=== PATIENT | female | born 1950 | race African-American/Black ===

== ENCOUNTER 2023-08-12 16:02 | Inpatient (IN) | payer MEDICARE, MEDICAID ==
[~2023-08-12] VITALS: Ht 152.4 cm; Wt 36.3 kg
[2023-08-12 17:01] LABS: BASOPHILS % 0.5 % (0.0-2.0); EOSINOPHILS % 0.2 % (0.0-5.0); HEMATOCRIT. 38.2 % (36.0-48.0); HEMOGLOBIN. 13.3 g/dL (12.0-16.0); LYMPHOCYTES % 39.3 % (20.0-50.0); MEAN CORPUSCULAR HEMOGLOBIN 33.3 pg (28.0-32.0); MEAN CORPUSCULAR HGB CONC 34.7 g/dL (31.0-37.0); MEAN CORPUSCULAR VOLUME 95.9 fL (81.0-99.0); MEAN PLATELET VOLUME 8.4 fl (7.4-10.4); MONOCYTES % 6.3 % (2.0-8.0); NEUTROPHILS % 53.7 % (40.0-76.0); PLATELET 374 x1000/uL (130-400); RED BLOOD CELL COUNT 3.99 mill/uL (4.2-5.4); RED CELL DISTRIBUTION WIDTH 12.9 % (11.6-14.6); WHITE BLOOD COUNT 7.1 x1000/uL (4.5-11.0)
[2023-08-12] MEDS: SODIUM CHLORIDE 0.9% 1,000 ML IV ONE (17:03)
[2023-08-12] MEDS: ONDANSETRON HCL 4MG/2ML INJ IV STA (17:05)
[2023-08-12 17:08] LABS: CARBON DIOXIDE 23 mEq/L (21-32); CHLORIDE 87 mEq/L (98-107); SODIUM 125 mEq/L (136-145)
[2023-08-12 17:09] LABS: CALCIUM 9.5 mg/dL (8.7-10.4)
[2023-08-12 17:13] LABS: CREATININE 1.3 mg/dL (0.6-1.0); GLUCOSE 271 mg/dL (70-105)
[2023-08-12 17:14] LABS: UREA NITROGEN BLOOD 29 mg/dL (9-23)
[2023-08-12 17:15] LABS: ALANINE AMINOTRANSFERASE 20 IU/L (10-49); ALBUMIN 4.2 g/dL (3.2-4.8); ASPARTATE AMINOTRANSFERASE 45 IU/L (<34)
[2023-08-12 17:16] LABS: BILIRUBIN TOTAL 0.8 mg/dL (0.1-1.0); PROTEIN TOTAL 7.3 g/dL (6.0-8.3)
[2023-08-12 17:26] LABS: TROPONIN I HIGH SENSITIVITY 359 ng/L (3.0-34)
[2023-08-12 17:34] LABS: CLARITY URINE CLEAR (CLEAR); COLOR URINE YELLOW (YELLOW); GLUCOSE URINE 3+ (NEGATIVE); KETONES URINE 2+ (NEGATIVE); LEUKOCYTE ESTERASE URINE TRACE (NEGATIVE); NITRITE URINE NEGATIVE (NEGATIVE); OCCULT BLOOD URINE 1+ (NEGATIVE); PH URINE 5.5 (4.5-8.0); PROTEIN URINE 3+ (NEGATIVE); SPECIFIC GRAVITY URINE 1.017 (1.005-1.030)
[2023-08-12 17:49] LABS: SQUAMOUS EPITHELIAL CELL URINE FEW /lpf (RARE/1+)
[2023-08-12 17:50] LABS: BACTERIA URINE 2+
[2023-08-12] MEDS: ASPIRIN 81MG TABLET PO ONE (18:49)
[2023-08-12] MEDS: AMLODIPINE 5MG TABLET PO ONE (18:49)
[2023-08-12] MEDS: CEFTRIAXONE 1GM/50ML 50 ML IV ONE (18:49)
[2023-08-13] MEDS ORDERED: IPRATROPIUM/ALBUTEROL 0.5-3(2.5)MG/3ML NEB HHN PRN (00:15)
[2023-08-13] MEDS ORDERED: ACETAMINOPHEN 325MG TABLET PO PRN (00:15)
[2023-08-13] MEDS ORDERED: ONDANSETRON HCL 4MG/2ML INJ IV PRN (00:15)
[2023-08-13 01:30] VITALS: BP 142/69; PULSE 88; RESP 18; TEMP 97.2
[2023-08-13] MEDS: SODIUM CHLORIDE 0.9% 1,000 ML IV SCH (01:45)
[2023-08-13] MEDS: FAMOTIDINE 20MG/2ML VIAL IV SCH (01:45)
[2023-08-13 04:00] VITALS: BP 120/62; PULSE 81; RESP 18; TEMP 97.2
[2023-08-13] MEDS: CEFTRIAXONE 1GM/50ML 50 ML IV SCH (04:35)
[2023-08-13] MEDS ORDERED: DEXTROSE 50% WATER 50ML SYRINGE IV PRN ×2 (05:30→17:45)
[2023-08-13] MEDS: INSULIN LISPRO 100 UNITS/ML SUBCUT SCH ×2 (06:50→17:40)
[2023-08-13] MEDS: BLOOD SUGAR DIAGNOSTIC STRIP TEST SCH (06:50)
[2023-08-13 08:00] VITALS: BP 115/56; PULSE 87; RESP 16; TEMP 97.7
[2023-08-13] MEDS: ENOXAPARIN 30MG/0.3ML SYR SUBCUT SCH (08:52)
[2023-08-13] MEDS: LOSARTAN 25 MG TABLET PO SCH ×2 (08:52)
[2023-08-13] MEDS: ASPIRIN 81MG TABLET PO SCH (08:52)
[2023-08-13 09:05] LABS: CHLORIDE 99 mEq/L (98-107)
[2023-08-13 09:06] LABS: CALCIUM 8.4 mg/dL (8.7-10.4); CARBON DIOXIDE 28 mEq/L (21-32)
[2023-08-13 09:11] LABS: GLUCOSE 53 mg/dL (70-105); SODIUM 134 mEq/L (136-145); UREA NITROGEN BLOOD 17 mg/dL (9-23)
[2023-08-13 09:13] LABS: CREATINE KINASE MB FRACTION 11.6 ng/mL (0.5-3.6)
[2023-08-13 10:11] LABS: D-DIMER 0.42 mg/L FEU (<0.50); PROTHROMBIN TIME 10.8 sec (9.6-11.0)
[2023-08-13 10:37] LABS: BG BASE EXCESS -0.8 mmol/L (-2.0-2.0); BG CARBOXYHEMOGLOBIN 0.2 % (0.5-1.5); BG DEOXYHEMOGLOBIN 2.2 % (0.0-5.0); BG FRACTION INSPIRED OXYGEN 21; BG HCO3 ACT 22.2 mmol/L (22.0-26.0); BG METHEMOGLOBIN 0.3 % (0.0-1.5); BG OXYGEN SATURATION 97.8 % (92.0-98.5); BG OXYHEMOGLOBIN 97.3 % (94.0-97.0); BG PCO2 31.5 mmHg (35.0-45.0); BG PH 7.466 (7.350-7.450); BG PO2 114.7 mmHg (75.0-100.0); BG SAMPLE SITE RIGHT RADIAL; BG TOTAL HEMOGLOBIN 11.4 g/dL (12.0-18.0); BG VENT MODE ROOM AIR
[2023-08-13 10:39] LABS: HEMOGLOBIN 11.5 g/dL (12.0-16.0); MEAN CORPUSCULAR HEMOGLOBIN 32.6 pg (28.0-32.0); MEAN CORPUSCULAR HGB CONC 34.8 g/dL (31.0-37.0); MEAN CORPUSCULAR VOLUME 93.7 fL (81.0-99.0); PLATELET 288 x1000/uL (130-400); RED BLOOD CELL COUNT 3.53 mill/uL (4.2-5.4); WHITE BLOOD COUNT 6.7 x1000/uL (4.5-11.0)
[2023-08-13 12:00] VITALS: BP 115/62; PULSE 87; RESP 18; TEMP 97.9
[2023-08-13 12:23] LABS: CHLORIDE 96 mEq/L (98-107); POTASSIUM 3.2 mEq/L (3.5-5.1); SODIUM 132 mEq/L (136-145)
[2023-08-13 12:24] LABS: CALCIUM 8.5 mg/dL (8.7-10.4); CARBON DIOXIDE 26 mEq/L (21-32)
[2023-08-13 12:29] LABS: GLUCOSE 92 mg/dL (70-105); UREA NITROGEN BLOOD 16 mg/dL (9-23)
[2023-08-13 12:33] LABS: VITAMIN B12 SERUM 746 pg/mL (211-911)
[2023-08-13 16:00] VITALS: BP 120/60; PULSE 91; RESP 20; TEMP 97.9
[2023-08-13 18:18] LABS: AMMONIA < 17 uMol/L (<32); CREATINE KINASE MB FRACTION 12.2 ng/mL (0.5-3.6)
[2023-08-13 18:19] LABS: CREATINE KINASE 113 IU/L (34-145); PHOSPHORUS 2.5 mg/dL (2.5-4.9)
[2023-08-13 18:32] LABS: TROPONIN I HIGH SENSITIVITY 231 ng/L (3.0-34)
[2023-08-13] MEDS: POTASSIUM CHLORIDE 20MEQ/PACKET PO NR (19:24)
[2023-08-13 20:00] VITALS: BP 133/76; PULSE 103; RESP 17; TEMP 97.7
[2023-08-13] MEDS: ATORVASTATIN CALCIUM 40MG TABLET PO SCH (20:33)
[2023-08-13 22:25] LABS: CREATINE KINASE MB FRACTION 11.8 ng/mL (0.5-3.6)
[2023-08-13 22:41] LABS: CREATINE KINASE MB FRACTION 11.6 ng/mL (0.5-3.6)
[2023-08-14] VITALS: BP 94/42; PULSE 91; RESP 17; TEMP 97.5
[2023-08-14 02:06] LABS: CREATINE KINASE MB FRACTION 8.4 ng/mL (0.5-3.6)
[2023-08-14 04:00] VITALS: BP 129/58; PULSE 86; RESP 18; TEMP 97.7
[2023-08-14] MEDS: CEFTRIAXONE 2GM/50ML 50 ML IV SCH (05:24)
[2023-08-14 08:00] VITALS: BP 101/54; PULSE 87; RESP 18; TEMP 98
[2023-08-14 08:09] LABS: PARTIAL THROMBOPLASTIN TIME 25.6 sec (23.4-31.0); PROTHROMBIN TIME 10.9 sec (9.6-11.0)
[2023-08-14 08:52] LABS: BASOPHILS % 0.8 % (0.0-2.0); EOSINOPHILS % 0.8 % (0.0-5.0); HEMATOCRIT. 27.6 % (36.0-48.0); HEMOGLOBIN. 9.9 g/dL (12.0-16.0); LYMPHOCYTES % 42.6 % (20.0-50.0); MEAN CORPUSCULAR HEMOGLOBIN 33.8 pg (28.0-32.0); MEAN CORPUSCULAR HGB CONC 35.8 g/dL (31.0-37.0); MEAN CORPUSCULAR VOLUME 94.5 fL (81.0-99.0); MEAN PLATELET VOLUME 8.3 fl (7.4-10.4); MONOCYTES % 5.2 % (2.0-8.0); NEUTROPHILS % 50.6 % (40.0-76.0); PLATELET 248 x1000/uL (130-400); RED BLOOD CELL COUNT 2.92 mill/uL (4.2-5.4); WHITE BLOOD COUNT 6.3 x1000/uL (4.5-11.0)
[2023-08-14 12:00] VITALS: BP 126/66; PULSE 84; RESP 20; TEMP 97.9
[2023-08-14 12:36] LABS: T4 FREE 1.53 ng/dL (0.89-1.76); THYROID STIMULATING HORMONE 0.38 uIU/mL (0.55-4.78)
[2023-08-14 16:00] VITALS: BP 137/66; PULSE 74; RESP 20; TEMP 98.2
[2023-08-14 20:00] VITALS: BP 128/70; PULSE 72; RESP 18; TEMP 98
[2023-08-15] VITALS (7 sets, daily range): BP systolic 109–144; BP diastolic 59–76; PULSE 71–83; RESP 14–20; TEMP 97.7–98.2
[2023-08-16 04:00] VITALS: BP 129/62; PULSE 83; RESP 18; TEMP 98
[2023-08-16 08:00] VITALS: BP 146/71; PULSE 95; RESP 18; TEMP 99
[2023-08-16] MEDS ORDERED: VERAPAMIL HCL 2.5 MG/1 ML 2ML VIAL IV ONE (11:38)
[2023-08-16] MEDS ORDERED: LIDOCAINE HCL 1% 10 MG/ML 10ML VIAL ONE (11:38)
[2023-08-16] MEDS ORDERED: DIPHENHYDRAMINE 50MG/ML VIAL ONE (11:39)
[2023-08-16] MEDS ORDERED: IODIXANOL 320MG/ML 100 ML BOTTLE IV ONE (11:39)
[2023-08-16] MEDS ORDERED: HEPARIN 1,000 UNITS PREMIX 1,500 ML IV ONE (11:39)
[2023-08-16] MEDS ORDERED: HEPARIN 1000 UNITS/ML 10ML ONE (11:39)
[2023-08-16 12:00] VITALS: BP 120/65; PULSE 93; RESP 18; TEMP 96.6
[2023-08-16] MEDS ORDERED: MIDAZOLAM HCL 2 MG/2 ML VIAL ONE (12:10)
[2023-08-16] MEDS ORDERED: FENTANYL CITRATE/PF 50MCG/ML 2ML VIAL ONE (12:10)
[2023-08-16] MEDS ORDERED: ACETAMINOPHEN 325MG TABLET PO PRN (13:45)
[2023-08-16] MEDS ORDERED: ATROPINE SULFATE 1MG/10ML SYR IV PRN (13:45)
[2023-08-16] MEDS: SODIUM CHLORIDE 0.45% 500 ML IV SCH (14:18)
[2023-08-16] MEDS: HYDRALAZINE 20MG/ML VIAL IV NR (14:48)
[2023-08-16 16:40] VITALS: BP 118/62; PULSE 87; RESP 18; TEMP 97.3
[2023-08-16] MEDS: ISOSORBIDE MONONITRATE 30MG TABLET SR 24HR PO SCH (17:07)
[2023-08-16 20:00] VITALS: BP 115/68; PULSE 88; RESP 18; TEMP 97
[2023-08-16] MEDS: METOPROLOL TARTRATE 25MG TABLET PO SCH (21:07)
[2023-08-16] MEDS: INSULIN GLARGINE 100 UNITS/ML SUBCUT SCH (21:42)
[2023-08-17] VITALS: BP 115/55; PULSE 98; RESP 18; TEMP 97.8
[2023-08-17 04:00] VITALS: BP 110/61; PULSE 100; RESP 18; TEMP 97.8
[2023-08-17 07:31] LABS: HEMATOCRIT. 24.4 % (36.0-48.0); HEMOGLOBIN. 8.7 g/dL (12.0-16.0); MEAN CORPUSCULAR HEMOGLOBIN 33.6 pg (28.0-32.0); MEAN CORPUSCULAR HGB CONC 35.5 g/dL (31.0-37.0); MEAN CORPUSCULAR VOLUME 94.6 fL (81.0-99.0); MEAN PLATELET VOLUME 9.1 fl (7.4-10.4); PLATELET 258 x1000/uL (130-400); RED BLOOD CELL COUNT 2.58 mill/uL (4.2-5.4); RED CELL DISTRIBUTION WIDTH 13.3 % (11.6-14.6)
[2023-08-17 07:53] LABS: CHLORIDE 103 mEq/L (98-107)
[2023-08-17 07:54] LABS: CALCIUM 8.2 mg/dL (8.7-10.4); CARBON DIOXIDE 24 mEq/L (21-32); SODIUM 133 mEq/L (136-145)
[2023-08-17 07:58] LABS: DIFFERENTIAL COMMENT 1
[2023-08-17 07:59] LABS: CREATININE 1.1 mg/dL (0.6-1.0); GLUCOSE 140 mg/dL (70-105)
[2023-08-17 08:00] VITALS: BP 110/56; PULSE 107; RESP 18; TEMP 99.3
[2023-08-17 08:00] LABS: UREA NITROGEN BLOOD 17 mg/dL (9-23)
[2023-08-17 08:02] LABS: PHOSPHORUS 2.7 mg/dL (2.5-4.9)
[2023-08-17] MEDS: AMLODIPINE 2.5MG TABLET PO SCH (08:55)
[2023-08-17] MEDS: MAGNESIUM 4 G PREMIX 100 ML IV NR (11:06)
[2023-08-17 11:34] LABS: PLATELET ESTIMATE NORMAL
[2023-08-17 12:00] VITALS: BP 100/50; PULSE 76; RESP 18; RESP 20; TEMP 99
[2023-08-17 16:00] VITALS: BP 101/50; PULSE 66; RESP 18; TEMP 96.4
[2023-08-17 20:00] VITALS: BP 103/66; PULSE 92; RESP 18; TEMP 97
[2023-08-17] MEDS: METOPROLOL TARTRATE 50MG TABLET PO SCH (21:00)
[2023-08-17] MEDS: INSULIN GLARGINE 100 UNITS/ML SUBCUT SCH (21:36)
[2023-08-18] VITALS: BP 100/66; PULSE 69; RESP 20; TEMP 98.6
[2023-08-18 04:00] VITALS: BP 99/59; PULSE 70; RESP 20; TEMP 98.6
[2023-08-18 08:00] VITALS: BP 102/50; PULSE 78; RESP 18; TEMP 96.9
[2023-08-18] MEDS: METOPROLOL TARTRATE 25MG TABLET PO SCH (08:52)
[2023-08-18 12:00] VITALS: BP 100/57; PULSE 85; RESP 18; TEMP 97
[2023-08-18] MEDS ORDERED: METF-874 MT (12:31)
[2023-08-18] MEDS ORDERED: ASPI-1160 PO (12:31)
[2023-08-18] MEDS ORDERED: ISOS30TA91 PO (12:31)
[2023-08-18] MEDS ORDERED: METO25TA6 PO (12:31)
[2023-08-18] MEDS ORDERED: LIP40 PO (12:31)
[2023-08-18 13:26] VITALS: BP 100/52; PULSE 85; TEMP 97; O2SAT 97
[2023-08-18] MEDS ORDERED: ATORVASTATIN CALCIUM 40MG TABLET PO SCH (21:00)
== END 2023-08-18 16:08 | DRG 871 ==
LOC: ER 16:02 → 5WST 17:57 → EDBEDREQ 17:59 → EDBEDREQTM 17:59 → 8WST 08-13 00:54
PROVIDERS: ADMIT Internal Medicine; ATTEND Internal Medicine
PROC: 4A023N7 Measurement of Cardiac Sampling and Pressure, Left Heart, Percutaneous Approach (ICD-10-PCS; principal; 2023-08-16)
PROC: B211YZZ Fluoroscopy of Multiple Coronary Arteries using Other Contrast (ICD-10-PCS; 2023-08-16)
DX: A41.9 Sepsis, unspecified organism (principal); I21.A1 Myocardial infarction type 2; E87.1 Hypo-osmolality and hyponatremia; N17.9 Acute kidney failure, unspecified; N39.0 Urinary tract infection, site not specified; Z68.1 Body mass index [BMI] 19.9 or less, adult; I10 Essential (primary) hypertension; J44.9 Chronic obstructive pulmonary disease, unspecified; S30.0XXA Contusion of lower back and pelvis, initial encounter; Z20.822 Contact with and (suspected) exposure to COVID-19; R62.7 Adult failure to thrive; E11.9 Type 2 diabetes mellitus without complications; E11.65 Type 2 diabetes mellitus with hyperglycemia; R01.1 Cardiac murmur, unspecified; I25.10 Atherosclerotic heart disease of native coronary artery without angina pectoris; Z79.84 Long term (current) use of oral hypoglycemic drugs; Z79.899 Other long term (current) drug therapy; X58.XXXA Exposure to other specified factors, initial encounter; Y93.89 Activity, other specified; Y92.89 Other specified places as the place of occurrence of the external cause; Y99.8 Other external cause status
CPT/HCPCS: 36415; 36600; 71045; 80048; 80053; 80061; 81003; 82140; 82375; 82550; 82553; 82607; 82746; 82805; 82962; 83036; 83605; 83735; 83880; 83930; 84100; 84439; 84443; 84484; 85025; 85027; 85379; 87426; 93005; 93306; 93458; 93880; 93970; 99285; C1769; C1887; C1893; J0360; J0696; J1200; J1644; J1650; J1815; J2250; J2405; J3010; J3475; J3490; J7030; Q9967

== ENCOUNTER 2023-11-26 18:33 | Inpatient (IN) | payer MEDICARE ==
[~2023-11-26] VITALS: Ht 152.4 cm; Wt 36.3 kg
[~2023-11-26 18:33] MED LIST: ASPI-1160 PO; INSULIN GLARGINE 100 UNITS/ML SUBCUT SCH; ISOS30TA91 PO; LIP40 PO; METF-874 MT; METO25TA6 PO
[2023-11-26] MEDS ORDERED: CLONIDINE 0.1MG TABLET PO PRN (19:45)
[2023-11-26] MEDS ORDERED: ONDANSETRON HCL 4MG/2ML INJ IV PRN (19:45)
[2023-11-26] MEDS ORDERED: DEXTROSE 50% WATER 50ML SYRINGE IV PRN (19:45)
[2023-11-26] MEDS ORDERED: GUAIFENESIN 200MG/10ML SUGAR FREE UDC PO PRN (19:45)
[2023-11-26] MEDS ORDERED: KETOROLAC 15MG/ML VIAL IV PRN (19:45)
[2023-11-26] MEDS ORDERED: IPRATROPIUM/ALBUTEROL 0.5-3(2.5)MG/3ML NEB HHN PRN (19:45)
[2023-11-26] MEDS ORDERED: MAGNESIUM/ALUMINUM HYDROXIDE/SIMETHICONE 30ML UDC PO PRN (19:45)
[2023-11-26 20:00] VITALS: BP 93/44; PULSE 69; RESP 18; TEMP 36.78072; TEMP 36.8072; O2SAT 96
[2023-11-26] MEDS: METOPROLOL TARTRATE 25MG TABLET PO SCH (21:00)
[2023-11-26] MEDS: BLOOD SUGAR DIAGNOSTIC STRIP TEST SCH (21:20)
[2023-11-26] MEDS: ATORVASTATIN CALCIUM 40MG TABLET PO SCH (21:21)
[2023-11-26] MEDS: INSULIN LISPRO 100 UNITS/ML SUBCUT SCH (21:42)
[2023-11-27 06:19] LABS: BASOPHILS % 0.6 % (0.0-2.0); EOSINOPHILS % 1.6 % (0.0-5.0); LYMPHOCYTES % 26.4 % (20.0-50.0); MEAN CORPUSCULAR HEMOGLOBIN 31.8 pg (28.0-32.0); MEAN CORPUSCULAR HGB CONC 34.6 g/dL (31.0-37.0); MEAN CORPUSCULAR VOLUME 91.9 fL (81.0-99.0); MEAN PLATELET VOLUME 8.4 fl (7.4-10.4); MONOCYTES % 7.7 % (2.0-8.0); NEUTROPHILS % 63.7 % (40.0-76.0); PLATELET 296 x1000/uL (130-400); RED BLOOD CELL COUNT 2.83 mill/uL (4.2-5.4); RED CELL DISTRIBUTION WIDTH 16.5 % (11.6-14.6); WHITE BLOOD COUNT 7.5 x1000/uL (4.5-11.0)
[2023-11-27 06:24] LABS: CALCIUM 7.9 mg/dL (8.7-10.4); CHLORIDE 103 mEq/L (98-107); POTASSIUM 4.9 mEq/L (3.5-5.1); SODIUM 131 mEq/L (136-145)
[2023-11-27 06:25] LABS: CARBON DIOXIDE 24 mEq/L (21-32)
[2023-11-27 06:30] LABS: CREATININE 0.8 mg/dL (0.6-1.0); GLUCOSE 188 mg/dL (70-105); UREA NITROGEN BLOOD 18 mg/dL (9-23)
[2023-11-27 06:33] LABS: PREALBUMIN 8.8 mg/dl (10.0-40.0)
[2023-11-27] MEDS: INSULIN LISPRO 100 UNITS/ML SUBCUT SCH (06:56)
[2023-11-27 08:00] VITALS: BP 113/76; PULSE 90; RESP 18; TEMP 36.44736; O2SAT 100
[2023-11-27] MEDS: ASPIRIN 81MG TABLET PO SCH (10:10)
[2023-11-27] MEDS: FAMOTIDINE 20MG/2ML VIAL IV SCH (10:11)
[2023-11-27] MEDS: ISOSORBIDE MONONITRATE 30MG TABLET SR 24HR PO SCH (10:11)
[2023-11-27] MEDS: INSULIN GLARGINE 100 UNITS/ML SUBCUT SCH (10:21)
[2023-11-27] MEDS: ENOXAPARIN 30MG/0.3ML SYR SUBCUT SCH (16:25)
[2023-11-27 20:00] VITALS: BP 102/50; PULSE 79; RESP 18; TEMP 37.00296; O2SAT 97
[2023-11-28 08:00] VITALS: BP 159/73; PULSE 83; RESP 18; TEMP 36.72516; O2SAT 98
[2023-11-28 08:15] LABS: BASOPHILS % 0.5 % (0.0-2.0); HEMATOCRIT. 27.1 % (36.0-48.0); HEMOGLOBIN. 9.2 g/dL (12.0-16.0); LYMPHOCYTES % 20.9 % (20.0-50.0); MEAN CORPUSCULAR HEMOGLOBIN 31.4 pg (28.0-32.0); MEAN CORPUSCULAR HGB CONC 34.1 g/dL (31.0-37.0); MEAN CORPUSCULAR VOLUME 92.2 fL (81.0-99.0); MEAN PLATELET VOLUME 7.7 fl (7.4-10.4); MONOCYTES % 6.1 % (2.0-8.0); NEUTROPHILS % 71.5 % (40.0-76.0); PLATELET 331 x1000/uL (130-400); RED BLOOD CELL COUNT 2.94 mill/uL (4.2-5.4); RED CELL DISTRIBUTION WIDTH 16.4 % (11.6-14.6); WHITE BLOOD COUNT 6.7 x1000/uL (4.5-11.0)
[2023-11-28 08:30] LABS: CLARITY URINE CLEAR (CLEAR); COLOR URINE YELLOW (YELLOW); GLUCOSE URINE 2+ (NEGATIVE); KETONES URINE NEGATIVE (NEGATIVE); LEUKOCYTE ESTERASE URINE NEGATIVE (NEGATIVE); NITRITE URINE NEGATIVE (NEGATIVE); OCCULT BLOOD URINE 1+ (NEGATIVE); PH URINE 6.5 (4.5-8.0); PROTEIN URINE 1+ (NEGATIVE); SPECIFIC GRAVITY URINE 1.008 (1.005-1.030)
[2023-11-28 08:36] LABS: AMMONIA < 17 uMol/L (<32)
[2023-11-28 08:39] LABS: THYROID STIMULATING HORMONE 0.67 uIU/mL (0.55-4.78)
[2023-11-28 08:40] LABS: FERRITIN 188 ng/mL (10-291); FOLIC ACID (FOLATE) SERUM 6.93 ng/mL (>5.38); VITAMIN B12 SERUM 579 pg/mL (211-911)
[2023-11-28 08:45] LABS: SQUAMOUS EPITHELIAL CELL URINE NONE SEEN /lpf (RARE/1+); WBC URINE 0-2 /hpf (0-2)
[2023-11-28 08:46] LABS: BACTERIA URINE NONE SEEN; RBC URINE 0-2 /hpf (0-2)
[2023-11-28 08:47] LABS: CHLORIDE 101 mEq/L (98-107); POTASSIUM 4.4 mEq/L (3.5-5.1); SODIUM 129 mEq/L (136-145)
[2023-11-28 08:48] LABS: CALCIUM 8.1 mg/dL (8.7-10.4); CARBON DIOXIDE 22 mEq/L (21-32)
[2023-11-28 08:53] LABS: CREATININE 0.8 mg/dL (0.6-1.0); GLUCOSE 193 mg/dL (70-105); IRON 64 ug/dL (50-170); UREA NITROGEN BLOOD 20 mg/dL (9-23)
[2023-11-28 08:55] LABS: ALANINE AMINOTRANSFERASE < 7 IU/L (10-49); ASPARTATE AMINOTRANSFERASE 22 IU/L (<34); BILIRUBIN TOTAL 0.6 mg/dL (0.1-1.0)
[2023-11-28 08:56] LABS: PROTEIN TOTAL 5.4 g/dL (6.0-8.3); TOTAL IRON BINDING CAPACITY 480 ug/dl (250-425)
[2023-11-28 20:00] VITALS: BP 103/55; PULSE 76; RESP 20; TEMP 36.89184; O2SAT 99
[2023-11-28] MEDS ORDERED: NA PHOS,M-B/NA PHOS,DI-BA ENEMA 118ML PR PRN (20:15)
[2023-11-28] MEDS: LACTULOSE 20G/30ML UDC PO SCH (21:55)
[2023-11-29 08:00] VITALS: BP 131/62; PULSE 88; RESP 18; TEMP 36.50292; O2SAT 95
[2023-11-29] MEDS: ACETAMINOPHEN 650MG/20.3ML UDC PO PRN (09:00)
[2023-11-29 20:00] VITALS: BP 119/59; PULSE 78; RESP 17; TEMP 36.22512; O2SAT 99
[2023-11-30 08:00] VITALS: BP 147/67; PULSE 73; RESP 17; TEMP 36.28068; O2SAT 97
[2023-11-30] MEDS: ACETAMINOPHEN 325MG TABLET PO PRN (09:20)
[2023-11-30] MEDS: LACTULOSE 20G/30ML UDC PO SCH (15:42)
[2023-11-30] MEDS: ERGOCALCIFEROL 50000UNITS CAPSULE PO SCH (15:43)
[2023-11-30] MEDS: NA PHOS,M-B/NA PHOS,DI-BA ENEMA 118ML PR NR (15:43)
[2023-12-01 06:19] LABS: BASOPHILS % 0.9 % (0.0-2.0); EOSINOPHILS % 1.7 % (0.0-5.0); HEMATOCRIT. 25.7 % (36.0-48.0); HEMOGLOBIN. 8.9 g/dL (12.0-16.0); LYMPHOCYTES % 20.8 % (20.0-50.0); MEAN CORPUSCULAR HEMOGLOBIN 32.3 pg (28.0-32.0); MEAN CORPUSCULAR HGB CONC 34.6 g/dL (31.0-37.0); MEAN CORPUSCULAR VOLUME 93.2 fL (81.0-99.0); MEAN PLATELET VOLUME 7.2 fl (7.4-10.4); NEUTROPHILS % 68.6 % (40.0-76.0); PLATELET 421 x1000/uL (130-400); RED BLOOD CELL COUNT 2.76 mill/uL (4.2-5.4); RED CELL DISTRIBUTION WIDTH 16.9 % (11.6-14.6); WHITE BLOOD COUNT 7.9 x1000/uL (4.5-11.0)
[2023-12-01 06:21] LABS: CARBON DIOXIDE 26 mEq/L (21-32); CHLORIDE 101 mEq/L (98-107); POTASSIUM 4.8 mEq/L (3.5-5.1); SODIUM 132 mEq/L (136-145)
[2023-12-01 06:23] LABS: CALCIUM 8.4 mg/dL (8.7-10.4)
[2023-12-01 06:27] LABS: CREATININE 0.8 mg/dL (0.6-1.0); GLUCOSE 147 mg/dL (70-105)
[2023-12-01 06:28] LABS: UREA NITROGEN BLOOD 31 mg/dL (9-23)
[2023-12-01 08:00] VITALS: BP 154/69; PULSE 72; RESP 18; TEMP 36.22512; O2SAT 95
[2023-12-01 20:00] VITALS: BP 121/54; PULSE 86; RESP 16; TEMP 36.55848; O2SAT 96
[2023-12-02 08:00] VITALS: BP 148/72; PULSE 89; RESP 17; TEMP 36.114; O2SAT 97
[2023-12-02] MEDS ORDERED: NALOXONE HCL 0.4MG/ML VIAL IV PRN (10:15)
[2023-12-02 20:00] VITALS: BP 122/51; PULSE 82; RESP 17; TEMP 36.33624; O2SAT 99
[2023-12-03 07:00] LABS: CARBON DIOXIDE 25 mEq/L (21-32); CHLORIDE 100 mEq/L (98-107); POTASSIUM 4.7 mEq/L (3.5-5.1); SODIUM 131 mEq/L (136-145)
[2023-12-03 07:02] LABS: CALCIUM 7.7 mg/dL (8.7-10.4)
[2023-12-03 07:05] LABS: CREATININE 0.9 mg/dL (0.6-1.0)
[2023-12-03 07:06] LABS: GLUCOSE 163 mg/dL (70-105)
[2023-12-03 07:07] LABS: UREA NITROGEN BLOOD 35 mg/dL (9-23)
[2023-12-03 07:12] LABS: BASOPHILS % 0.9 % (0.0-2.0); EOSINOPHILS % 1.8 % (0.0-5.0); HEMATOCRIT. 22.7 % (36.0-48.0); LYMPHOCYTES % 21.5 % (20.0-50.0); MEAN CORPUSCULAR HEMOGLOBIN 32.4 pg (28.0-32.0); MEAN CORPUSCULAR VOLUME 92.6 fL (81.0-99.0); MEAN PLATELET VOLUME 7.1 fl (7.4-10.4); NEUTROPHILS % 65.8 % (40.0-76.0); PLATELET 467 x1000/uL (130-400); RED BLOOD CELL COUNT 2.45 mill/uL (4.2-5.4); RED CELL DISTRIBUTION WIDTH 16.8 % (11.6-14.6); WHITE BLOOD COUNT 6.4 x1000/uL (4.5-11.0)
[2023-12-03 08:00] VITALS: BP 114/74; PULSE 78; RESP 20; TEMP 36.44736; O2SAT 99
[2023-12-03] MEDS: TRAMADOL 50MG TABLET PO PRN (08:51)
[2023-12-03 20:00] VITALS: BP 128/62; PULSE 90; RESP 18; TEMP 36.22512; O2SAT 95
[2023-12-04 08:00] VITALS: BP 121/52; PULSE 80; RESP 18; TEMP 36.114; O2SAT 95
[2023-12-04 08:56] LABS: BASOPHILS % 0.8 % (0.0-2.0); EOSINOPHILS % 1.2 % (0.0-5.0); HEMOGLOBIN. 8.8 g/dL (12.0-16.0); LYMPHOCYTES % 19.9 % (20.0-50.0); MEAN CORPUSCULAR HGB CONC 33.7 g/dL (31.0-37.0); MEAN CORPUSCULAR VOLUME 94.9 fL (81.0-99.0); MONOCYTES % 10.5 % (2.0-8.0); NEUTROPHILS % 67.6 % (40.0-76.0); PLATELET 535 x1000/uL (130-400); RED BLOOD CELL COUNT 2.74 mill/uL (4.2-5.4); RED CELL DISTRIBUTION WIDTH 17.4 % (11.6-14.6); WHITE BLOOD COUNT 7.8 x1000/uL (4.5-11.0)
[2023-12-04 09:11] LABS: CHLORIDE 99 mEq/L (98-107); POTASSIUM 4.9 mEq/L (3.5-5.1); SODIUM 130 mEq/L (136-145)
[2023-12-04 09:12] LABS: CALCIUM 8.1 mg/dL (8.7-10.4); CARBON DIOXIDE 28 mEq/L (21-32)
[2023-12-04 09:17] LABS: CREATININE 0.8 mg/dL (0.6-1.0); GLUCOSE 83 mg/dL (70-105); TRIGLYCERIDE 67 mg/dL (0-150); UREA NITROGEN BLOOD 36 mg/dL (9-23)
[2023-12-04 09:18] LABS: LDL CHOLESTEROL 94 mg/dL (5-100)
[2023-12-04 09:19] LABS: CHOLESTEROL 173 mg/dL (<200); HDL CHOLESTEROL 64 mg/dL (>65)
[2023-12-04 09:23] LABS: THYROID STIMULATING HORMONE 1.42 uIU/mL (0.55-4.78)
[2023-12-04] MEDS: FAMOTIDINE 20MG TABLET PO SCH (10:27)
[2023-12-04 19:57] VITALS: BP 114/59; PULSE 83; RESP 18; TEMP 36.72516; O2SAT 95
[2023-12-05 05:21] VITALS: BP 137/70; PULSE 76; RESP 20; O2SAT 94
[2023-12-05 07:39] LABS: BASOPHILS % 0.7 % (0.0-2.0); EOSINOPHILS % 0.6 % (0.0-5.0); HEMATOCRIT. 23.1 % (36.0-48.0); HEMOGLOBIN. 7.9 g/dL (12.0-16.0); LYMPHOCYTES % 16.6 % (20.0-50.0); MEAN CORPUSCULAR HEMOGLOBIN 32.8 pg (28.0-32.0); MEAN CORPUSCULAR HGB CONC 34.3 g/dL (31.0-37.0); MEAN CORPUSCULAR VOLUME 95.6 fL (81.0-99.0); MEAN PLATELET VOLUME 6.8 fl (7.4-10.4); MONOCYTES % 8.8 % (2.0-8.0); NEUTROPHILS % 73.3 % (40.0-76.0); PLATELET 496 x1000/uL (130-400); RED BLOOD CELL COUNT 2.41 mill/uL (4.2-5.4); RED CELL DISTRIBUTION WIDTH 17.1 % (11.6-14.6); WHITE BLOOD COUNT 8.3 x1000/uL (4.5-11.0)
[2023-12-05 07:55] LABS: CARBON DIOXIDE 25 mEq/L (21-32); CHLORIDE 99 mEq/L (98-107); POTASSIUM 5.3 mEq/L (3.5-5.1); SODIUM 128 mEq/L (136-145)
[2023-12-05 08:00] VITALS: BP 153/75; PULSE 77; RESP 18; TEMP 36.33624; O2SAT 93
[2023-12-05 08:01] LABS: GLUCOSE 209 mg/dL (70-105); UREA NITROGEN BLOOD 41 mg/dL (9-23)
[2023-12-05] MEDS ORDERED: NALOXONE HCL 0.4MG/ML VIAL IV PRN (12:00)
[2023-12-05] MEDS: FUROSEMIDE 40MG/4ML VIAL IVP SCH ×2 (12:21→18:50)
[2023-12-05] MEDS: DEMECLOCYCLINE HCL 300MG TABLET PO SCH (13:15)
[2023-12-05 14:23] LABS: BG CARBOXYHEMOGLOBIN 0.6 % (0.5-1.5); BG DEOXYHEMOGLOBIN 3.5 % (0.0-5.0); BG FRACTION INSPIRED OXYGEN 28; BG HCO3 ACT 23.9 mmol/L (22.0-26.0); BG METHEMOGLOBIN 0.3 % (0.0-1.5); BG OXYGEN SATURATION 96.5 % (92.0-98.5); BG OXYHEMOGLOBIN 95.6 % (94.0-97.0); BG PCO2 34.8 mmHg (35.0-45.0); BG PH 7.454 (7.350-7.450); BG PO2 84.8 mmHg (75.0-100.0); BG SAMPLE SITE RIGHT RADIAL; BG TOTAL HEMOGLOBIN 7.4 g/dL (12.0-18.0); BG VENT MODE NASAL CANNULA
[2023-12-05] MEDS: SODIUM ZIRCONIUM CYCLOSILICATE 10GM/PACKET PO NR ×2 (17:17→22:07)
[2023-12-05 20:00] VITALS: BP 124/60; PULSE 78; RESP 18; TEMP 36.55848; O2SAT 93
[2023-12-05 21:00] VITALS: O2SAT 94
[2023-12-05] MEDS ORDERED: IOHEXOL-350 100 ML BOTTLE ONE (22:55)
[2023-12-06 01:56] VITALS: PULSE 78; RESP 20; O2SAT 97
[2023-12-06] MEDS: IPRATROPIUM/ALBUTEROL 0.5-3(2.5)MG/3ML NEB HHN PRN (01:56)
[2023-12-06 06:26] VITALS: BP 130/58; PULSE 79
[2023-12-06 08:00] VITALS: BP 143/64; PULSE 85; RESP 18; TEMP 36.22512; O2SAT 93
[2023-12-06] MEDS: DOCUSATE SODIUM 100MG CAPSULE PO PRN (08:48)
[2023-12-06] MEDS ORDERED: SPIRONOLACTONE 25MG TABLET PO SCH (09:00)
[2023-12-06 10:45] LABS: POTASSIUM 4.1 mEq/L (3.5-5.1)
[2023-12-06 10:47] LABS: CALCIUM 7.9 mg/dL (8.7-10.4)
[2023-12-06 10:51] LABS: BASOPHILS % 0.6 % (0.0-2.0); CREATININE 1.2 mg/dL (0.6-1.0); EOSINOPHILS % 0.5 % (0.0-5.0); HEMATOCRIT. 23.9 % (36.0-48.0); HEMOGLOBIN. 8.3 g/dL (12.0-16.0); LYMPHOCYTES % 13.2 % (20.0-50.0); MEAN CORPUSCULAR HEMOGLOBIN 32.6 pg (28.0-32.0); MEAN CORPUSCULAR HGB CONC 34.8 g/dL (31.0-37.0); MEAN CORPUSCULAR VOLUME 93.6 fL (81.0-99.0); MEAN PLATELET VOLUME 6.8 fl (7.4-10.4); MONOCYTES % 8.6 % (2.0-8.0); NEUTROPHILS % 77.1 % (40.0-76.0); PLATELET 568 x1000/uL (130-400); RED BLOOD CELL COUNT 2.55 mill/uL (4.2-5.4); RED CELL DISTRIBUTION WIDTH 17.5 % (11.6-14.6); WHITE BLOOD COUNT 8.9 x1000/uL (4.5-11.0)
[2023-12-06 20:00] VITALS: BP 137/69; PULSE 86; RESP 18; TEMP 36.16956; O2SAT 92
[2023-12-07] MEDS: LACTULOSE 20G/30ML UDC PO PRN (06:17)
[2023-12-07 08:00] VITALS: BP 155/71; PULSE 95; RESP 17; TEMP 36.22512; O2SAT 96
[2023-12-07] MEDS: MULTIVITAMINS,THER W-MINERALS TABLET PO SCH (08:20)
[2023-12-07 12:24] LABS: BASOPHILS % 0.7 % (0.0-2.0); EOSINOPHILS % 0.6 % (0.0-5.0); HEMATOCRIT. 25.1 % (36.0-48.0); HEMOGLOBIN. 8.4 g/dL (12.0-16.0); LYMPHOCYTES % 13.8 % (20.0-50.0); MEAN CORPUSCULAR HEMOGLOBIN 31.5 pg (28.0-32.0); MEAN CORPUSCULAR HGB CONC 33.6 g/dL (31.0-37.0); MEAN CORPUSCULAR VOLUME 93.7 fL (81.0-99.0); MEAN PLATELET VOLUME 6.6 fl (7.4-10.4); NEUTROPHILS % 77.9 % (40.0-76.0); PLATELET 549 x1000/uL (130-400); RED BLOOD CELL COUNT 2.68 mill/uL (4.2-5.4); WHITE BLOOD COUNT 6.3 x1000/uL (4.5-11.0)
[2023-12-07 12:32] LABS: POTASSIUM 3.7 mEq/L (3.5-5.1)
[2023-12-07 12:37] LABS: CREATININE 1.4 mg/dL (0.6-1.0)
[2023-12-07 20:00] VITALS: BP 135/71; PULSE 91; RESP 18; TEMP 36.114; O2SAT 97
[2023-12-08 08:00] VITALS: BP 163/70; PULSE 93; RESP 18; TEMP 36.61404; O2SAT 94
[2023-12-08] MEDS: FUROSEMIDE 40MG/4ML VIAL IVP SCH (08:25)
[2023-12-08 13:29] LABS: POTASSIUM 3.7 mEq/L (3.5-5.1)
[2023-12-08 13:35] LABS: CREATININE 1.8 mg/dL (0.6-1.0)
[2023-12-08 20:00] VITALS: BP 132/66; PULSE 103; RESP 18; TEMP 37.00296; O2SAT 96
[2023-12-09 06:36] LABS: EOSINOPHILS % 0.8 % (0.0-5.0); HEMATOCRIT. 22.6 % (36.0-48.0); HEMOGLOBIN. 7.9 g/dL (12.0-16.0); LYMPHOCYTES % 20.1 % (20.0-50.0); MEAN CORPUSCULAR HEMOGLOBIN 32.9 pg (28.0-32.0); MEAN CORPUSCULAR HGB CONC 35.2 g/dL (31.0-37.0); MEAN CORPUSCULAR VOLUME 93.3 fL (81.0-99.0); MEAN PLATELET VOLUME 6.5 fl (7.4-10.4); MONOCYTES % 9.5 % (2.0-8.0); NEUTROPHILS % 68.6 % (40.0-76.0); PLATELET 483 x1000/uL (130-400); RED BLOOD CELL COUNT 2.42 mill/uL (4.2-5.4); RED CELL DISTRIBUTION WIDTH 18.1 % (11.6-14.6); WHITE BLOOD COUNT 5.2 x1000/uL (4.5-11.0)
[2023-12-09 06:48] LABS: CALCIUM 8.2 mg/dL (8.7-10.4); POTASSIUM 3.7 mEq/L (3.5-5.1)
[2023-12-09 06:54] LABS: CREATININE 1.7 mg/dL (0.6-1.0)
[2023-12-09 08:00] VITALS: BP 134/79; PULSE 100; RESP 18; TEMP 36.3918; O2SAT 98
[2023-12-09] MEDS ORDERED: FUROSEMIDE 20MG/2ML VIAL IVP SCH (09:00)
[2023-12-09] MEDS: ENOXAPARIN 30MG/0.3ML SYR SUBCUT SCH (17:37)
[2023-12-09 20:00] VITALS: BP 119/52; PULSE 95; RESP 17; TEMP 36.114; O2SAT 93
[2023-12-10 08:38] VITALS: BP 138/69; PULSE 94; RESP 19; TEMP 36.83628; O2SAT 99
[2023-12-10] MEDS: FUROSEMIDE 40MG TABLET PO SCH (08:43)
[2023-12-10] MEDS ORDERED: FURO40TA5 PO (09:45)
[2023-12-10] MEDS ORDERED: CHOL2000 PO (09:45)
[2023-12-10] MEDS ORDERED: LANTUSUD SUBCUT (09:45)
[2023-12-10] MEDS ORDERED: INSLIS SUBCUT (09:45)
[2023-12-10] MEDS ORDERED: MULT-1146 MT (09:46)
[2023-12-10 09:54] VITALS: BP 138/69; PULSE 94; TEMP 98.3; O2SAT 99
[2023-12-10 10:28] LABS: BASOPHILS % 1.2 % (0.0-2.0); HEMATOCRIT. 25.3 % (36.0-48.0); HEMOGLOBIN. 8.5 g/dL (12.0-16.0); LYMPHOCYTES % 21.3 % (20.0-50.0); MEAN CORPUSCULAR HEMOGLOBIN 31.9 pg (28.0-32.0); MEAN CORPUSCULAR HGB CONC 33.6 g/dL (31.0-37.0); MEAN CORPUSCULAR VOLUME 95.1 fL (81.0-99.0); MEAN PLATELET VOLUME 6.6 fl (7.4-10.4); MONOCYTES % 7.2 % (2.0-8.0); NEUTROPHILS % 69.3 % (40.0-76.0); PLATELET 491 x1000/uL (130-400); RED BLOOD CELL COUNT 2.66 mill/uL (4.2-5.4); RED CELL DISTRIBUTION WIDTH 18.6 % (11.6-14.6); WHITE BLOOD COUNT 5.1 x1000/uL (4.5-11.0)
[2023-12-10 10:29] LABS: POTASSIUM 4.2 mEq/L (3.5-5.1)
[2023-12-10 10:30] LABS: CALCIUM 7.7 mg/dL (8.7-10.4)
[2023-12-10 10:35] LABS: CREATININE 1.6 mg/dL (0.6-1.0)
[2023-12-11] MEDS ORDERED: FAMOTIDINE 20MG TABLET PO SCH (09:00)
== END 2023-12-10 11:40 | disposition home health service (06) | DRG 535 ==
PROVIDERS: ADMIT Physical Medicine & Rehabilitation Spinal Cord Injury Medicine; ATTEND Hospitalist
DX: S72.142A Displaced intertrochanteric fracture of left femur, initial encounter for closed fracture (principal); G93.41 Metabolic encephalopathy; I50.31 Acute diastolic (congestive) heart failure; J96.01 Acute respiratory failure with hypoxia; J69.0 Pneumonitis due to inhalation of food and vomit; E87.1 Hypo-osmolality and hyponatremia; J84.9 Interstitial pulmonary disease, unspecified; N17.9 Acute kidney failure, unspecified; Z68.1 Body mass index [BMI] 19.9 or less, adult; E11.65 Type 2 diabetes mellitus with hyperglycemia; R20.0 Anesthesia of skin; I25.10 Atherosclerotic heart disease of native coronary artery without angina pectoris; E78.00 Pure hypercholesterolemia, unspecified; J44.9 Chronic obstructive pulmonary disease, unspecified; R62.7 Adult failure to thrive; L89.159 Pressure ulcer of sacral region, unspecified stage; F17.210 Nicotine dependence, cigarettes, uncomplicated; R26.9 Unspecified abnormalities of gait and mobility; R13.10 Dysphagia, unspecified; E11.42 Type 2 diabetes mellitus with diabetic polyneuropathy; D63.8 Anemia in other chronic diseases classified elsewhere; E55.9 Vitamin D deficiency, unspecified; Z60.2 Problems related to living alone; E87.5 Hyperkalemia; I11.0 Hypertensive heart disease with heart failure; W18.39XA Other fall on same level, initial encounter; Z86.73 Personal history of transient ischemic attack (TIA), and cerebral infarction without residual deficits; Y93.89 Activity, other specified; Y92.89 Other specified places as the place of occurrence of the external cause; Y99.8 Other external cause status; Z83.3 Family history of diabetes mellitus; Z91.81 History of falling
CPT/HCPCS: 36415; 36600; 70551; 71045; 71275; 73502; 80048; 80053; 80061; 81003; 82140; 82306; 82375; 82533; 82607; 82728; 82746; 82805; 82962; 83036; 83540; 83550; 83880; 83930; 83935; 84134; 84443; 85025; 85379; 92523; 92610; 93306; 93970; 94618; 94640; 97110; 97116; 97150; 97162; 97166; 97530; 97535; 97542; A6261; C1893; J1650; J1815; J1940; J3490; Q9967